=== PATIENT | female | born 1980 | race Hispanic/Latino ===

== ENCOUNTER → 2017-06-27 11:20 | Outpatient (CLI) | payer OTHER, SELFPAY ==
[2017-06-27 11:36] LABS: Absolute Lymphocyte Count 1.82 X10^3/ul (0.83-4.51); Absolute Neutrophil Count 4.4 X10^3/uL (2.0-7.7); Basophil# 0.04 X10^3/uL; Basophil% 0.6 % (0-1); Eosinophil# 0.18 X10^3/uL; Eosinophils% 2.6 % (0-5); Hematocrit 33.1 % (37-47); Lymphocyte # 1.82 X10^3/ul (4.0); Lymphocyte % 26.1 % (19-41); Mean Corp Hgb Conc 33.2 g/gl (32-36); Mean Corpuscular Hgb 27.8 pg (27.0-32.0); Mean Corpuscular Volume 83.8 fL (81-99); Mean Platelet Vol. 9.3 fl (6.2-12.0); Monocyte# 0.54 X10^3/uL; Monocyte% 7.7 % (0-10); Neutrophil # 4.37 X10^3/uL (2.7-7.7); Neutrophil % 62.7 % (47-70); Platelet Count 266 K/mm3 (150-450); RBC Distribution Width SD 39.7 fl (35.1-43.9); Red Blood Count 3.95 M/mm3 (4.2-5.4)
[2017-06-27 11:39] LABS: POSITIVE COUNT NO; POSITIVE DIFFERENTIAL NO; POSITIVE MORPHOLOGY NO
--- NOTE | 2017-06-27 11:49 | CT_ITS ---
STUDY: CT ABDOMEN AND PELVIS WITH CONTRAST REASON FOR EXAM: Female, 36 years old. Lower abdominal pain. Recent right oophorectomy and fibroid resection. RADIATION DOSAGE (If Supplied By Facility): CTDIvol = ( 10.22 ) mGy, DLP = ( 356.69 ) mGycm TECHNIQUE: Transaxial images were obtained from the dome of the diaphragm to the symphysis pubis with oral contrast. 100mL ml of Isovue 300 contrast was administered. Sagittal and coronal images were reconstructed. Individualized dose optimization techniques were used for this CT. COMPARISON: None. FINDINGS: The visualized lung bases are unremarkable. The visualized portions of the heart are within normal limits. Normal liver. Normal gallbladder and extrahepatic biliary system. Normal spleen. Normal pancreas. Normal bilateral adrenal glands. Normal right kidney. Normal left kidney. Normal visualized stomach. Normal small intestine. Normal colon. The appendix is visualized and appears normal. Normal abdominal aorta. Normal inferior vena cava. Normal retroperitoneum. Normal urinary bladder. Enlarged and inhomogeneous uterus in keeping with a fibroid uterus. Thickened endometrium. This measures 1.9 cm. There is a 3.4 cm x 2.7 cm cyst in the left ovary. Small benign-appearing bilateral inguinal lymph nodes. Normal abdominal wall. Normal osseous structures. CT/Abdomen/Pelvis WITH Contrast IMPRESSION: Enlarged fibroid uterus with thickening of the endometrium measuring 1.9 cm. Left ovarian cyst. Electronically Signed: Pollo Finley MD at 14:25 EST Tel [phone], Service support ,
[2017-06-27 11:50] LABS: AST(SGOT) 14 U/L (15-37); Alanine Aminotransfer ALT/SGPT 26 U/L (13-56); Albumin, Serum 3.8 g/dL (3.2-5.0); Alkaline Phosphatase 78 U/L (45-117); Anion Gap 7 (5-15); BUN 17 mg/dL (7-18); Calcium,Total 8.4 mg/dL (8.5-10.1); Chloride 108 mmol/L (98-107); Creatinine, Serum 0.46 mg/dL (0.55-1.02); EST Glomerular Filtration Rate 162 mL/min (>60); Est Glom Filt Rate - Afr Amer 196 mL/min (>60); Globulin 3.8 g/dL (2.2-4.2); Glucose 93 mg/dL (74-106); Potassium 3.8 mmol/L (3.5-5.1); Protein, Total 7.6 g/dL (6.4-8.2); Sodium Level 141 mmol/L (136-145)
== END ==
PROVIDERS: Visit Provider Obstetrics & Gynecology
DX: G89.18 Other acute postprocedural pain (principal)
CPT/HCPCS: 36415; 74177; 80053; 85025; Q9967

== ENCOUNTER → 2017-07-08 17:19 | Outpatient (CLI) | payer OTHER, SELFPAY | PROVIDERS: Visit Provider Obstetrics & Gynecology | DX: R30.0 Dysuria (principal) | CPT/HCPCS: 87086; 87088 ==

== ENCOUNTER → 2018-01-02 17:32 | Outpatient (CLI) | payer OTHER, SELFPAY | PROVIDERS: Visit Provider Nurse Practitioner Women's Health | DX: N76.0 Acute vaginitis (principal) | CPT/HCPCS: 87070; 87077; 87186; 87205 ==

== ENCOUNTER → 2022-05-11 | Outpatient (CLI) | payer OTHER, SELFPAY ==
--- NOTE | 2022-05-11 11:17 | US_ITS ---
STUDY: ULTRASOUND OF THE FEMALE PELVIS - COMPLETE REASON FOR EXAM: Female, 41 years old. PELVIC pain TECHNIQUE: Endovaginal. Transvaginal US was obtained to better visualized the ovaries. COMPARISON: ct 2.5.18 FINDINGS: The uterus is retroverted and is in a midline position. The uterus measures 8.3x8.2 cm. Normal uterine cervix. The endometrium measures 2 mm in thickness, and is hyperechoic. There is 22mm demonstrated endometrial mass. Fibroid noted. The largest is measuring 30mm in the uterine body. I.U.D. - The patient does not have an I.U.D. There is nonvisualization of the right ovary due to overlying bowel gas. The left ovary is visualized. The left ovary measures 2 cm. There is no left ovarian cyst or ovarian mass. There is no visualized left adnexal mass or complex lesion. There is normal arterial and normal venous vascularity. There is minimal fluid in the cul-de-sac. Urinary bladder volume is (in cc) 404. US/Pelvic (Non ) IMPRESSION: There is minimal fluid in the cul-de-sac. Fibroid uterus. 22 mm mass noted in the endometrium. There is also endometrial thickening. This is abnormal for the patient''s age if she is postmenopausal. Direct visualization is recommended . Electronically Signed: Jeffrey Pineda MD at 21:21 EST ,
== END | disposition home or self-care (01) ==
LOC: US 11:16
PROVIDERS: Visit Provider Registered Nurse
DX: R10.2 Pelvic and perineal pain (principal); G89.29 Other chronic pain
CPT/HCPCS: 76830; 76856; 93976

== ENCOUNTER 2022-06-08 09:06 | Day surgery (SDC) | payer OTHER, SELFPAY ==
[2022-06-08] VITALS (9 sets, daily range): BP systolic 96–123; BP diastolic 57–72; PULSE 60–81; RESP 12–16; TEMP 36.5–37.2; O2SAT 100; BMI 21.0
--- NOTE | 2022-06-08 09:30 | PCM.HP.BLA ---
History and Physical Date of Admission: 06/08/22 Intake Vital Signs ? 05/11/2214:31 05/14/2214:30 Height 5 ft 4 in 5 ft 4 in Weight: 124 lb ? BMI 21.2 ? BP 130/75 H ? Intake Visit Reasons:?review US results/preop Chief Complaint: Review US? results/preop Pharmacy Picking Technician Required: No Is patient in pain?: No Allergies No Known Allergies Allergy (Verified 05/14/22 14:26) Medications acetaminophen-pamabrom 500 mg-25 mg tablet (Midol) 1 tab PO Q6H PRN 05/05/22 [History Confirmed 05/14/22] ibuprofen 200 mg tablet (Advil) 200 mg PO Q6H PRN 05/05/22 [History Confirmed 05/14/22] Is last menstrual period known: Yes Last Menstrual Period: 04/23/22 Post menopausal: No Patient : No : No PFSH Medical History? Acid reflux Menorrhagia Pelvic pain Surgical History? Status post hysteroscopy Family History? Mother Leukemia DiabetesFather Myocardial infarction Social History? Smoking Status:? Never smoker alcohol intake:? never substance use type:? does not use caffeine:? No what type of physical activity do you participate in:? running and weight training frequency:? 3-4 times per week seatbelt use:? always do you feel safe at home:? Yes additional social history:? - Geo ? HPI review US results/preop Details: MARCELO REED is a 41 year old G0 who presents for consultation and pre-op for myomectomy. In 2018 she underwent an extensive abdominal myomectomy with Dr. Menard. All but 2 small fibroids remain, a 3 cm uterine body fibroid is present and a 2 mm endometrial fibroid is present. She still has pelvic pain and heavy menses. She still very much wants to conceive naturally but her had a vasectomy 4 months prior to meeting her and he is looking into getting a vasectomy reversal. Female Reproductive History Last Menstrual Period: 04/23/22 History ? ? ? 0 ? Elective abortions ? Hx Para ? Spontaneous abortions ? Hx # Term Pregnancies ? Ectopic pregnancies ? Hx # Pregnancies ? Multiple births ? # of living children ? ROS Const ROS Unobtainable: All systems reviewed & are unremarkable except as noted in H Resp Resp: Reports system reviewed and no additional complaints, except as documented; Denies cough GI GI: Reports as per HPI Psych Psych: Reports system reviewed and no additional complaints, except as documented Exam Const General: cooperative, healthy appearing, comfortable and no acute distress Resp Effort & Inspection: normal respiratory effort Skin General: no rashes or lesions noted Psych Appearance: grossly normal Speech and Movement: speech and movement normal Coding Level of Care Code Off vis,est,level 4 Diagnoses Dysmenorrhea? N94.6 Menorrhagia? N92.0 Chronic pelvic pain in female? R10.2; G89.29 Endometrial polyp? N84.0 Uterine fibroid? D25.1; D25.2; D25.2 ? ? ? Uterine leiomyoma location: intramural and subserous Assessment and Plan Assessment and Plan (1) Dysmenorrhea: ?Status:?Acute ?Comment: midol significantly assist pain. recommended taking OTC first 2-3 days for pain management. heating pads for comfort (2) Menorrhagia: ?Status:?Acute ?Comment: reviewed likelihood of fibroids. TVUS recommended desires . discussed speaking with about fertility options. currently with vasectomy. tearful in office over desire for conception. would consider medication management vs surgical management based on conversation with . (3) Chronic pelvic pain in female: ?Status:?Acute (4) Endometrial polyp: ?Status:?Acute (5) Uterine fibroid: ?Status:?Acute ?Qualifiers: ?Uterine leiomyoma location:?intramural and subserous? Qualified Code(s):?D25.1 - Intramural leiomyoma of uterus; D25.2 - Subserosal leiomyoma of uterus; D25.2 - Subserosal leiomyoma of uterus Plan After discussing the patient's diagnosis and treatment plan options, patient wishes to proceed with surgical management.? I have discussed with the patient the risks, benefits, and alternatives of the procedure which include but are not limited to risks of anesthesia, bleeding, infection, possible damage to bowel, bladder, or surrounding vasculature which could lead to additional surgery to evaluate any complications.? Patient agrees to procedure and wishes to proceed.? ACOG/uptodate references given for additional information regarding procedure.? plan for hysteroscopy, myomectomy with the symphion device anytime after jun 01. 05/14/22 1510 <Electronically signed by Angelina Villanueva DO> UPDATE- I have seen the patient and performed any clinically relevant updates to the history and physical exam. Angelina Villanueva, DO
[2022-06-08] MEDS: Lactated Ringers 1,000 ML 15 ML IV (09:38)
[2022-06-08 09:52] LABS: Hematocrit 33.7 % (37-47); Hemoglobin 11.3 g/dL (12.0-15.0); Mean Corp Hgb Conc 33.5 g/dL (32-36); Mean Corpuscular Hgb 27.7 pg (27.0-32.0); Mean Corpuscular Volume 82.6 fL (81-99); Mean Platelet Vol. 9.7 fl (6.2-12.0); Platelet Count 279 K/mm3 (150-450); RBC Distribution Width CV 14.4 % (11.6-14.6); RBC Distribution Width SD 43.1 fl (35.1-43.9); Red Blood Count 4.08 M/mm3 (4.2-5.4); White Blood Count 4.7 K/mm3 (4.4-11.0)
[2022-06-08 09:56] LABS: Internal QC Validated? YES +Cl - CLEAR BKGD; Pregnancy, Urine Negative Negative
--- NOTE | 2022-06-08 10:11 | DCINST_ITS ---
Discharge Instructions Diet Discharge Diet: No restrictions Activity Discharge Activity: Return to Normal Activity, May Shower and May Take a Tub Bath (after 1 week) May resume sexual activity in: 1-2 weeks Weight Bearing Status: Weight bearing as tolerated Lifting Restrictions: none Dressing / Incision Call your doctor if you observe: Fever of 101 or Higher, Using more than 1 pad per hour, Shortness of breath and Uncontrolled pain Follow Up Care Please Follow Up With: Angelina Villanueva DO When: Call [phone] to schedule appointment. Test Results: Test results from this visit will be discussed in further detail at your follow- up appointment, if applicable. Discharge Plan Admission Primary Reason for Your Visit: hysteroscopy, myomectomy Attending Provider: Angelina Villanueva Primary Care Provider: Care PhysicianNaomi Primary Discharge Orders/Prescriptions Prescriptions: New oxycodone-acetaminophen [Percocet] 5-325 mg tablet 1 tab PO Q4H PRN (Reason: pain) 3 Days Qty: 10 0RF Rx Instructions: 1-2 tabs q 4 hrs as needed for pain Continued Midol 500-25 mg tablet 1 tab PO Q6H PRN (Reason: Pain) ibuprofen [Advil] 200 mg tablet 200 mg PO Q6H PRN (Reason: Pain) Referrals / Follow Up: Care Physician,Naomi Primary [Primary Care Provider] - Disposition Disposition (needs filled in before D/C Order can be placed): Home, Self Care
--- NOTE | 2022-06-08 10:35 | EMB_PTH ---
PATIENT: CLARK HARRISON #:[id number] LOC: [facility] [place] U#:[id number] AGE/SX: 41/F ROOM: RE06/08/[address]: Dr. Angelina Villanueva DO : 1980 BED: DIS: 06/08/2022 SPEC #: [id number] RECD: 06/08/22 14:35 STATUS: GILLIAN BENAVIDEZJessica #: [id number] GINA: 06/08/22 10:[address]: Angelina Villanueva DEPT: SURGICAL PATHOLOGY RECD BY: Dorinda Reyna ENTERED: 06/09/22 08:41 SP TYPE: ENDOM BX/C JESUS DR: No Primary Care Phys Tissues: Endometrium, NOS Procedures: Surgery Specimen Level IV HEADER OPERATION: Hysteroscopy, myomectomy with Symphion PRE-OP DIAGNOSIS: Dysmenorrhea, menorrhagia, chronic pelvic pain, endometrial fibroid TISSUE SUBMITTED: Endometrial curettings MICROSCOPIC DIAGNOSIS Endometrial curettings: Secretory endometrium. Fragments of myometrium, consistent with submucosal leiomyoma. HUE:jayy 06/10/2022 MICROSCOPIC DESCRIPTION Slides are reviewed. GROSS DESCRIPTION Received in fixative is one container labeled with the patient's name and designated endometrial curettings. The specimen consists of multiple irregular fragments of guillen soft tissue that in aggregate measure 7.5 x 3 x 1 cm. Fragments of polypoid tissue are also noted measuring 2.5 x 1 x 1 cm. This piece is serially sectioned. The entire specimen is submitted in nine cassettes. Cassette 3 contains the serially sectioned polypoid piece. / HUE:jayy 06/09/2022 TC:1 CPT: 23176
[2022-06-08] MEDS: Lidocaine 1% (20 ml mdv) 20 ML Vial (10:39)
--- NOTE | 2022-06-08 11:27 | DCINST_ITS ---
Discharge Instructions Diet Discharge Diet: No restrictions Activity May resume sexual activity in: 1-2 weeks Weight Bearing Status: Weight bearing as tolerated Dressing / Incision Call your doctor if you observe: Fever of 101 or Higher, Using more than 1 pad per hour, Shortness of breath and Uncontrolled pain Follow Up Care Please Follow Up With: Angelina Villanueva DO Test Results: Test results from this visit will be discussed in further detail at your follow- up appointment, if applicable. Discharge Plan Admission Primary Reason for Your Visit: hysteroscopy, myomectomy Attending Provider: Angelina Villanueva Primary Care Provider: Naomi Martell Primary Discharge Orders/Prescriptions Prescriptions: New oxycodone-acetaminophen [Percocet] 5-325 mg tablet 1 tab PO Q4H PRN (Reason: pain) 3 Days Qty: 10 0RF Rx Instructions: 1-2 tabs q 4 hrs as needed for pain Continued Midol 500-25 mg tablet 1 tab PO Q6H PRN (Reason: Pain) ibuprofen [Advil] 200 mg tablet 200 mg PO Q6H PRN (Reason: Pain) Referrals / Follow Up: Care PhysicianNaomi Primary [Primary Care Provider] - Disposition Disposition (needs filled in before D/C Order can be placed): Home, Self Care
--- NOTE | 2022-06-08 11:27 | OP.PCM_ITS ---
Operative Report Date of Procedure: 06/08/22 preoperative diagnosis: menorrhagia, 3 cm myometrial fibroid Postoperative diagnosis:menorrhagia, 3 cm myometrial fibroid Surgeon: Dr. Angelina Villanueva DO EBL: 10cc urine output: 200cc findings: myometrial fibroid fluid deficit 800cc specimens removed: endometrial curettings Details of the procedure: Patient was prepped and draped in a normal sterile fashion under MAC anesthesia. A weighted speculum was placed in the vagina and the anterior lip of the cervix was grasped with a single-tooth tenaculum. A paracervical block was placed with 1% lidocaine. Cervix was progressively dilated to allow passage of a 5 mm hysteroscope. The 3 cm fibroid was noted. Next, the Symphion device was inserted through the hysteroscope and activated to remove the majority of the fibroid. Once the fibroid was freed from the endometrium a polyp forceps device was used to remove the small remaining part . A sharp Curettage was also performed and specimen was sent to pathology. All instruments were removed from the vagina and excellent hemostasis was noted. Patient was awoken and ta ant to recovery in stable condition. Multi Select Codes Urinary/Genital Urinary/Genital CPT Codes: 61542 Hysteroscopic myomectomy
== END 2022-06-08 13:04 | disposition home or self-care (01) ==
LOC: SDC 09:21 → AC 09:22
PROVIDERS: Referring Provider Obstetrics & Gynecology; Visit Provider Obstetrics & Gynecology
PROC: 0UB98ZZ Excision of Uterus, Via Natural or Artificial Opening Endoscopic (ICD-10-PCS; CPT 58558; principal; 2022-06-08 10:20)
DX: N92.0 Excessive and frequent menstruation with regular cycle (principal); N84.0 Polyp of corpus uteri; D25.2 Subserosal leiomyoma of uterus; N94.6 Dysmenorrhea, unspecified
CPT/HCPCS: 58561; 00952; 81025; 85027; 86850; 86900; 86901; 88305; J2405

== ENCOUNTER → 2022-06-22 | Outpatient (CLI) | payer OTHER, SELFPAY ==
--- NOTE | 2022-06-22 10:24 | BI_ITS ---
MAMMOGRAPHY - BILATERAL SCREENING REASON FOR EXAM: Female, 41 years old. Routine annual screening examination. PERTINENT HISTORY: Non-contributory. TECHNIQUE: Digital bilateral breast suzanna (3D mammographic acquisition) in the CC and MLO projections. 2-D mediolateral oblique (MLO) and craniocaudad (CC) views of both breasts were obtained. CAD: Full Field Digital Mammography with Computer Added Detection was performed. COMPARISON: None. Baseline examination. FINDINGS: Breast Composition: The breasts are extremely dense, which lowers the sensitivity of mammography. There are no dominant masses or suspicious calcifications. No other significant abnormalities are identified. BI/SCRN MAMM (CAD)W/SUZANNA BILAT IMPRESSION: Negative screening mammogram. Yearly followup mammogram recommended. (A) ASSESSMENT CATEGORY: BIRADS Category 1: Negative. A letter regarding these results will be sent to the patient by the facility within 30 days. Approximately 10% of breast cancers are not detected by mammography. A normal mammogram should not delay biopsy of a clinically suspicious abnormality. [id number] Electronically Signed: Pollo Finley MD at 11:22 EST ,
[2022-06-28 19:42] LABS: HPV APTIMA, High Risk Negative (Negative)
== END | disposition home or self-care (01) ==
PROVIDERS: Visit Provider Obstetrics & Gynecology
DX: Z12.31 Encounter for screening mammogram for malignant neoplasm of breast (principal); Z12.4 Encounter for screening for malignant neoplasm of cervix
CPT/HCPCS: 77063; 77067; 87624; 88175; G0145

== ENCOUNTER 2022-10-28 16:40 | Emergency (ER) | payer OTHER, SELFPAY ==
[2022-10-28 16:45] VITALS: BP 133/71; PULSE 68; RESP 16; TEMP 35.8; O2SAT 100; BMI 21.2
--- NOTE | 2022-10-28 17:18 | EDS_ITS ---
HPI HPI - Fall History of Present Illness Chief Complaint: Chest Other Detail of Chief Complaint: Injuring her right rib cage and right thigh. Informant: patient and spouse/S.O. Occured/Mechanism Occurred: Yesterday Mechanism/Context: Yes same level fall Usually ambulates: Without assistance Pain/Injury Pain Location: chest and lower extremity Quality of Pain: Dull and Aching Current Severity: Moderate Maximum Severity: Moderate Associated Symptoms Associated Symptoms: Negative for Parasthesias, Weakness, Loss of function, Inability to ambulate, Loss of consciousness or Amnesia Narrative Narrative: Healthy 41-year-old female [place] past medical or surgical history. Yesterday fell into a trapdoor on the floor injuring her right lateral posterior rib cage and right lateral mid thigh. No LOC. She is not on any blood thinners or any other medications. Today when she was moving she felt a pop in her right rib cage. 1 to get it evaluated. Prior similar symptoms: No Recent Illness/Hospitalization: No PFSH PFSH Medical History Anxiety Back pain Depression Low iron Migraine headache Non-smoker Shortness of breath on exertion Wears glasses Home Medications ibuprofen 100 mg tablet 200 mg PO Q6H PRN Pain 10/28/22 [History Last Taken 10/28/22] Allergy/AdvReac Type Severity Reaction Status Date / Time No Known Allergies Allergy Verified 10/28/22 17:04 Surgical History Hx of laparoscopy Social History Smoking Status: Never smoker ROS ROS ED ROS Narrative Denies recent illness. Review of Systems ROS Unobtainable: Denies due to encephalopathy Constitutional Constitutional ED: Denies chills or fever(s) Eyes Eyes: Denies blurry vision ENT ENT ED: Denies ear pain Cardiovascular Cardiovascular: Denies chest pain Respiratory/Chest Respiratory/Chest: Denies cough or dyspnea Gastrointestinal Gastrointestinal: Denies abdominal pain Genitourinary Genitourinary ED: Denies dysuria Musculoskeletal Musculoskeletal: Denies arthralgias Integumentary Denies abscess Neurologic Neurologic: Denies headache(s) Psychiatric Psychiatric: Denies anxiety Endocrine Endocrinology: Denies polydipsia Hematologic/Lymphatic Hematologic/Lymphatic: Denies easy bleeding or easy bruising Allergic/Immunologic Allergic/Immunologic ED: Denies mouth swelling EXAM Physical Exam Narrative Exam Narrative: 39-year-old female vital signs stable afebrile. Pulse ox 9% room air no signs hypoxia. H EENT exam pupils round reactive light. No facial trauma. No hematoma or laceration to the scalp. Nontender. C-spine, T-spine and LS-spine nontender. Tenderness to the right posterior lateral rib cage with mild bruising and swelling. No crepitance or subcu air. Left back is nontender. Lungs clear to auscultation bilaterally. Heart regular rhythm no murmur rate about 70. Anterior chest wall minimal tenderness on the right upper chest. Abdomen soft nontender normal bowel sounds no peritoneal signs. No signs of trauma. Pelvic girdle intact. Moves all 4 extremities. Full range of motion. Normal printing specialist strength. Normal dorsi plantarflexion. Patient has a bruise to her right lateral thigh. About 2 inches wide by 2 inches long. There is no bony deformity or tenderness. She has full range of motion to the right hip, knee, ankle and foot. Neurologically she is awake and alert. No focal motor deficits. Answering questions and following commands. GCS of 15. Const Vital Signs: 10/28/22 16:45 10/28/22 17:05 10/28/22 17:05 Temperature 96.5 F L Temperature Source Temporal Pulse Rate 68 Respiratory Rate 16 Respiratory Effort Normal Non-Labored Normal Non-Labored Respiratory Pattern Normal Blood Pressure 133/71 H Blood Pressure Mean 91 Pulse Ox 100 Oxygen Delivery Method Room Air Positive well nourished and well developed; Negative for obese, cachectic or contractures General Appearance ED: well developed and NAD; Negative for cachectic or contractures Nutritional Appearance: Negative for cachectic or obese HEENT Reports normocephalic atraumatic; Negative for trauma, contusion, hematoma or tenderness Eyes PERRL and EOMs intact bilaterally General Eye ED: Negative for pale conjunctiva or scleral icterus Neck full ROM, no lymphadenopathy and supple General: Negative for tenderness Chest Wall Negative for inspection of chest normal or palpation of chest normal Chest Narrative: Tenderness right anterior chest wall. Also right posterior ribs. Small bruising and swelling on the right posterior rib cage inferior to the shoulder blade. Resp normal respiratory effort, no retractions and clear to auscultation bilaterally Effort and Inspection: Negative for pain with movement Auscultation: Negative for rales, rhonchi or wheezes Cardio regular rate, regular rhythm, S1 normal heart sound, S2 normal heart sound and no murmurs GI non-tender, non-distended and no masses Inspection: Negative for abdominal distention Auscultation: normoactive bowel sounds Palpation: soft; Negative for guarding or rebound tenderness present Back/Spine no CVA tenderness Back/Spine Narrative: Right posterior rib cage tenderness. General Back: Negative for CVA tenderness Cervical Spine: Negative for cervical spine tenderness Thoracic Spine / Upper Back: Negative for ROM limited Lumbar Spine / Lower Back: Negative for lumbar spinal tenderness Extremity Extremity Narrative: Bruise right lateral mid thigh. Full range of motion. No bony deformity. Neuro oriented x3, CN's II-XII intact bilaterally, moves all extremities, no focal motor deficits and no sensory deficits noted Aamir Coma Scale: document GCS findings Spontaneous Obeys Commands Oriented 15 Sensorium / Orientation: alert, oriented to person, oriented to place and oriented to time; Negative for orientation impaired, confused, lethargic or stuporous Motor Exam: strength 5/5 throughout Psych mental status grossly normal and thought process normal Appearance: Negative for other Attitude: No agitated Mood & Affect: Negative for depressed, anxious or tearful Skin General Skin Exam: Negative for other Lesions: no lesions Rashes: no rashes Trauma: Negative for abrasion or laceration MDM MDM MDM Narrative Medical decision making narrative: 41-year-old female fell into but not through a trapdoor. Injuring her right lateral posterior rib cage and has a bruise to her right thigh. Discussed with her and her imaging and we chose to do a chest x-ray. We are holding off on a CAT scan. The leg does not need imaging. She was not knocked out she is not on any blood thinners. She does not need a CAT scan of her head. She has no neck pain. Feeling well patient doing well. We went over the x-ray results. Motrin and Tylenol for pain. Ice. Follow-up if not improving. History & Record Review Discussion w/independent historian: Patient and Family Radiography Chest X-Ray - ED: 2 View and Read by ED Physician Diagnostic Testing: Clinical Impression(s) from Imaging Studies Chest X-Ray 10/28/22 17:40 IMPRESSION: No radiographic evidence of acute cardiopulmonary disease. Electronically Signed: Desean Garcia MD at 18:02 EDT , Chest x-ray, 2 views, interpreted by myself and the radiologist shows no acute abnormality. No obvious rib fracture. Normal lung solis. No pneumothorax. No hemothorax. Normal cardiac silhouette. I did go over the chest x-ray with patient and family. Discharge Plan Triage Chief Complaint: Chest Other Other Complaint: Fall ED Provider: Misael Triplett Dx/Rx/DC Orders Clinical Impression: Fall, Contusion of rib on right side, Contusion of right thigh Instructions: ED Bruise, Rib Prescriptions: No Action Advil 100 mg Tablet 200 mg PO Q6H PRN (Reason: Pain) Primary Care Provider: Care Physician,No Primary Referrals: Giorgio Coppola MD [Med Staff - Contour Stitcher] - 1 Week if not improving NOT,DEFINED [Non-Staff] - Activity Restrictions/Additional Instructions: Your x-ray and was negative. Ice to the chest wall. A pillow to your right rib cage to help with the discomfort. Motrin and Tylenol for pain. Follow-up with not improving. Disposition Disposition: Home, Self Care
--- NOTE | 2022-10-28 17:40 | RAD_ITS ---
EXAM: XR CHEST, 2 VIEWS CLINICAL INDICATION: fall w/ right rib cage trauma TECHNIQUE: Frontal and lateral views of the chest. COMPARISON: No relevant prior studies available. FINDINGS: LUNGS AND PLEURAL SPACES: Unremarkable. No consolidation or edema. No pneumothorax. No effusion. HEART: Unremarkable. Cardiac silhouette not enlarged. MEDIASTINUM: Central airways and mediastinal contour are unremarkable. BONES/JOINTS: Unremarkable. SOFT TISSUES: Unremarkable. RAD/Chest PA and Lateral IMPRESSION: No radiographic evidence of acute cardiopulmonary disease. Electronically Signed: Desean Garcia MD at 18:02 EDT ,
[2022-10-28 18:20] VITALS: RESP 18
== END 2022-10-28 18:22 | disposition home or self-care (01) ==
PROVIDERS: Emergency Provider Emergency Medicine; Visit Provider Emergency Medicine
DX: S20.211A Contusion of right front wall of thorax, initial encounter (principal); S70.11XA Contusion of right thigh, initial encounter; W18.30XA Fall on same level, unspecified, initial encounter
CPT/HCPCS: 71046; 99284